=== PATIENT | female | born 1990 | race Caucasian/White ===

== ENCOUNTER 2016-11-09 11:04 | Emergency (ER) | payer MEDICARE, MEDICAID ==
--- NOTE | 2016-11-13 18:43 | ER ---
ADMIT: 11/09/2016 RM/LOC: ER [facility] MR#: [id number] [id number] [place], [place] [id number] [address] [place] [address] Emergency Room Report SEX: F AGE: 26 : 1990 DATE: 11/09/2016 HISTORY OF PRESENT ILLNESS: The patient is a 26-year-old, 19 weeks . She says she wiped herself today and was spotting, then she saw some blood in the toilet and got a little anxious about it, decided to come in and get it evaluated. She denies any cramping, any nausea, vomiting, headache, dizziness. Her heart tones in the ER were 146. She does have obvious anxiety. PAST MEDICAL HISTORY: She has had a spontaneous miscarriage and has had an ovarian cyst. MEDICATIONS AND ALLERGIES: See T sheet. SOCIAL HISTORY: See T-sheet. PHYSICAL EXAMINATION: Within normal limits. Pelvic examination did not show any blood nor discharge, but I still did some swabs to screen for bacterial vaginosis. Cervix is closed. NEUROLOGIC: Oriented x4. LABS: Quantitative beta hCG is 13,446. Rh AB positive. Wet prep is negative. UA normal. CLINICAL IMPRESSION: Spotting, with threatened miscarriage. The patient was reassured of her viable . heart tones 146. Follow up with her provider next week where she is going to have her 2nd ultrasound by Dr. Schrader. Discharged with instructions to hydrate and follow up closely. HORACIO Davenport / Dougie Kyle MD / modl JOB #: [id number] CC: Dougie Kyle MD, Attending Physician Janey Schrader MD
[2017-03-11] MEDS ORDERED: MOTRIN-DPS800 MG PO (13:32)
[2017-03-11] MEDS ORDERED: PROCARDIA XL DP30 MG PO (13:32)
[2017-03-11] MEDS ORDERED: COLACE-DPS100 MG PO (13:32)
[2017-03-11] MEDS ORDERED: PRENATAL VIT1 TAB PO (13:32)
[2017-03-11] MEDS ORDERED: PRILOSEC DPS20 MG PO (13:32)
[2017-03-11] MEDS ORDERED: NORCO 5-325 TA1 EACH PO (13:33)
[2017-06-03] MEDS ORDERED: PRILOSEC DPS20 MG PO (14:26)
[2017-06-03] MEDS ORDERED: CLARITIN DPS10 MG PO (14:26)
[2017-06-03] MEDS ORDERED: ALLERGY4 MG PO (14:27)
[2017-06-03] MEDS ORDERED: PAXIL20 MG PO (14:27)
[2017-06-03] MEDS ORDERED: ZOFRAN4 MG PO (14:27)
[2017-06-03] MEDS ORDERED: TRI LINYAH PO (14:27)
== END 2016-11-09 13:30 | disposition home or self-care (01) ==
LOC: ER 11:04
DX: O20.0 Threatened abortion (principal); Z3A.19 19 weeks gestation of pregnancy

== ENCOUNTER 2016-12-30 14:55 | Outpatient (CLI) | payer MEDICARE, MEDICAID ==
[2017-03-11] MEDS ORDERED: PROCARDIA XL DP30 MG PO (13:32)
[2017-03-11] MEDS ORDERED: COLACE-DPS100 MG PO (13:32)
[2017-03-11] MEDS ORDERED: MOTRIN-DPS800 MG PO (13:32)
[2017-03-11] MEDS ORDERED: PRENATAL VIT1 TAB PO (13:32)
[2017-03-11] MEDS ORDERED: PRILOSEC DPS20 MG PO (13:32)
[2017-03-11] MEDS ORDERED: NORCO 5-325 TA1 EACH PO (13:33)
[2017-06-03] MEDS ORDERED: CLARITIN DPS10 MG PO (14:26)
[2017-06-03] MEDS ORDERED: PRILOSEC DPS20 MG PO (14:26)
[2017-06-03] MEDS ORDERED: ALLERGY4 MG PO (14:27)
[2017-06-03] MEDS ORDERED: PAXIL20 MG PO (14:27)
[2017-06-03] MEDS ORDERED: TRI LINYAH PO (14:27)
[2017-06-03] MEDS ORDERED: ZOFRAN4 MG PO (14:27)
== END 2016-12-30 16:00 | disposition home or self-care (01) ==
LOC: 2LDRP 14:55 → BC 14:55
DX: O99.89 Other specified diseases and conditions complicating pregnancy, childbirth and the puerperium (principal); R10.9 Unspecified abdominal pain; Z3A.31 31 weeks gestation of pregnancy

== ENCOUNTER 2017-02-18 18:55 | Outpatient (CLI) | payer MEDICARE, MEDICAID ==
[2017-03-11] MEDS ORDERED: COLACE-DPS100 MG PO (13:32)
[2017-03-11] MEDS ORDERED: MOTRIN-DPS800 MG PO (13:32)
[2017-03-11] MEDS ORDERED: PRILOSEC DPS20 MG PO (13:32)
[2017-03-11] MEDS ORDERED: PROCARDIA XL DP30 MG PO (13:32)
[2017-03-11] MEDS ORDERED: PRENATAL VIT1 TAB PO (13:32)
[2017-03-11] MEDS ORDERED: NORCO 5-325 TA1 EACH PO (13:33)
[2017-06-03] MEDS ORDERED: CLARITIN DPS10 MG PO (14:26)
[2017-06-03] MEDS ORDERED: PRILOSEC DPS20 MG PO (14:26)
[2017-06-03] MEDS ORDERED: ALLERGY4 MG PO (14:27)
[2017-06-03] MEDS ORDERED: PAXIL20 MG PO (14:27)
[2017-06-03] MEDS ORDERED: TRI LINYAH PO (14:27)
[2017-06-03] MEDS ORDERED: ZOFRAN4 MG PO (14:27)
== END 2017-02-18 20:15 | disposition home or self-care (01) ==
LOC: BC 18:55 → 2LDRP 18:55 → BC 20:15
DX: O99.89 Other specified diseases and conditions complicating pregnancy, childbirth and the puerperium (principal); R10.9 Unspecified abdominal pain; R07.9 Chest pain, unspecified; Z3A.38 38 weeks gestation of pregnancy

== ENCOUNTER 2017-02-20 13:00 | Outpatient (CLI) | payer MEDICARE, MEDICAID ==
[~2017-02-20] VITALS: Ht 153 cm; Wt 115.7 kg
[2017-03-11] MEDS ORDERED: COLACE-DPS100 MG PO (13:32)
[2017-03-11] MEDS ORDERED: PRENATAL VIT1 TAB PO (13:32)
[2017-03-11] MEDS ORDERED: MOTRIN-DPS800 MG PO (13:32)
[2017-03-11] MEDS ORDERED: PRILOSEC DPS20 MG PO (13:32)
[2017-03-11] MEDS ORDERED: PROCARDIA XL DP30 MG PO (13:32)
[2017-03-11] MEDS ORDERED: NORCO 5-325 TA1 EACH PO (13:33)
[2017-06-03] MEDS ORDERED: CLARITIN DPS10 MG PO (14:26)
[2017-06-03] MEDS ORDERED: PRILOSEC DPS20 MG PO (14:26)
[2017-06-03] MEDS ORDERED: ZOFRAN4 MG PO (14:27)
[2017-06-03] MEDS ORDERED: PAXIL20 MG PO (14:27)
[2017-06-03] MEDS ORDERED: TRI LINYAH PO (14:27)
[2017-06-03] MEDS ORDERED: ALLERGY4 MG PO (14:27)
== END 2017-02-20 15:18 | disposition home or self-care (01) ==
LOC: BC 13:00 → 2LDRP 13:00 → BC 15:18
DX: O16.3 Unspecified maternal hypertension, third trimester (principal); Z3A.38 38 weeks gestation of pregnancy

== ENCOUNTER 2017-02-21 22:15 | Outpatient (CLI) | payer MEDICARE, MEDICAID ==
[2017-03-11] MEDS ORDERED: PROCARDIA XL DP30 MG PO (13:32)
[2017-03-11] MEDS ORDERED: COLACE-DPS100 MG PO (13:32)
[2017-03-11] MEDS ORDERED: MOTRIN-DPS800 MG PO (13:32)
[2017-03-11] MEDS ORDERED: PRENATAL VIT1 TAB PO (13:32)
[2017-03-11] MEDS ORDERED: PRILOSEC DPS20 MG PO (13:32)
[2017-03-11] MEDS ORDERED: NORCO 5-325 TA1 EACH PO (13:33)
[2017-06-03] MEDS ORDERED: PRILOSEC DPS20 MG PO (14:26)
[2017-06-03] MEDS ORDERED: CLARITIN DPS10 MG PO (14:26)
[2017-06-03] MEDS ORDERED: ZOFRAN4 MG PO (14:27)
[2017-06-03] MEDS ORDERED: PAXIL20 MG PO (14:27)
[2017-06-03] MEDS ORDERED: ALLERGY4 MG PO (14:27)
[2017-06-03] MEDS ORDERED: TRI LINYAH PO (14:27)
== END 2017-02-21 23:40 | disposition home or self-care (01) ==
LOC: BC 22:15
DX: O99.89 Other specified diseases and conditions complicating pregnancy, childbirth and the puerperium (principal); R10.9 Unspecified abdominal pain; Z3A.34 34 weeks gestation of pregnancy

== ENCOUNTER 2017-02-24 14:15 | Outpatient (CLI) | payer MEDICARE, MEDICAID ==
[2017-03-11] MEDS ORDERED: PRILOSEC DPS20 MG PO (13:32)
[2017-03-11] MEDS ORDERED: PROCARDIA XL DP30 MG PO (13:32)
[2017-03-11] MEDS ORDERED: MOTRIN-DPS800 MG PO (13:32)
[2017-03-11] MEDS ORDERED: PRENATAL VIT1 TAB PO (13:32)
[2017-03-11] MEDS ORDERED: COLACE-DPS100 MG PO (13:32)
[2017-03-11] MEDS ORDERED: NORCO 5-325 TA1 EACH PO (13:33)
[2017-06-03] MEDS ORDERED: PRILOSEC DPS20 MG PO (14:26)
[2017-06-03] MEDS ORDERED: CLARITIN DPS10 MG PO (14:26)
[2017-06-03] MEDS ORDERED: ALLERGY4 MG PO (14:27)
[2017-06-03] MEDS ORDERED: TRI LINYAH PO (14:27)
[2017-06-03] MEDS ORDERED: PAXIL20 MG PO (14:27)
[2017-06-03] MEDS ORDERED: ZOFRAN4 MG PO (14:27)
== END 2017-02-24 16:51 | disposition home or self-care (01) ==
LOC: BC 14:15 → 2LDRP 14:15 → BC 14:41
DX: O99.89 Other specified diseases and conditions complicating pregnancy, childbirth and the puerperium (principal); R10.9 Unspecified abdominal pain; Z3A.35 35 weeks gestation of pregnancy